=== PATIENT | female | born 1965 | race Two or more races ===

== ENCOUNTER 2023-06-25 12:34 | Outpatient (REF) | payer OTHER, SELFPAY ==
--- NOTE | ~2023-06-25 | XR_ITS ---
EXAMINATION: XR FOOT, RIGHT CLINICAL INFORMATION: Pain. COMPARISON: None available. TECHNIQUE: AP, lateral, and oblique views of the right foot. FINDINGS: There is bony demineralization. No fracture, dislocation or right ankle joint effusion is seen. Boehler's angle is normal. There are moderate posterior and plantar calcaneal spurs. There are degenerative changes of the dorsal midfoot. There is osteoarthritic change of the first and fourth metatarsophalangeal joints, and of the interphalangeal joint of the great toe. There is no focal soft tissue swelling, gas or foreign body. XR/XR foot RT min 3V IMPRESSION: 1. No fracture, dislocation or right ankle joint effusion is seen. 2. There are calcaneal spurs. 3. There are degenerative changes of the first and fourth metatarsophalangeal joints and the interphalangeal joint of the great toe.
== END 2023-06-25 12:35 | disposition home or self-care (01) ==
LOC: HO.HOSX 12:34
PROVIDERS: Visit Provider Physician Assistant
DX: S90.31XA Contusion of right foot, initial encounter (principal)
CPT/HCPCS: 73630; 99212

== ENCOUNTER 2023-06-25 13:13 | Outpatient (AMB) | payer MEDICAID, SELFPAY ==
--- NOTE | 2023-06-25 13:20 | MHC.OFFVIS ---
Intake Intake Visit Reasons: FC- ?3/4TH FOOT RT FX Intake Note: Syl is a 57 year old female who presents today for a evaluation of her 3rd and 4th phalanges, DOI 06/10/23. Patient reports she fell. She states that she is having pain is her toes and under her foot. Allergies Fish Containing Products Allergy (Severe, Unverified 04/25/20 18:21) ANAPHYLAXIS peanut [PEANUT] Allergy (Severe, Unverified 04/25/20 18:21) ANAPHYLAXIS strawberry [[place]] Allergy (Severe, Unverified 04/25/20 18:21) ANAPHLAXIS-ALL BERRIES tomato [TOMATO] Allergy (Severe, Unverified 04/25/20 18:21) ANAPHYLAXIS acetaminophen [Tylenol] Allergy (Unknown, Verified 10/09/14 00:00) aspirin [ASA] Allergy (Unknown, Unverified 04/25/20 18:) SHOCK Beef Containing Products Allergy (Unknown, Unverified 04/25/20 18:) MEATS-RASH/EDEMA codeine [CODEINE] Allergy (Unknown, Unverified 04/25/20 18:21) EDEMA ephedrine [Ephedrine] Allergy (Unknown, Unverified 04/25/20 18:21) LO BP - HEART ATTACK epinephrine Allergy (Unknown, Verified 10/09/14 00:00) latex [LATEX] Allergy (Unknown, Unverified 04/25/20 18:21) RASH,EDEMA meperidine [Demerol] Allergy (Unknown, Verified 10/09/14 00:00) oxycodone [OXYCODONE] Allergy (Unknown, Unverified 04/25/20 18:21) DIAPHORETIC penicillin V Allergy (Unknown, Verified 10/09/14 00:00) Penicillins [PENICILLINS] Allergy (Unknown, Unverified 04/25/20 18:21) CONVULSIONS Sulfa (Sulfonamide Antibiotics) [SULFA(SULFONAMIDE ANTIBIOTICS)] Allergy (Unknown, Unverified 04/25/20 18:) RASH CHOCOLATE Allergy (Severe, Uncoded 04/25/20 18:21) ANAPHYLAXIS Latex Gloves Allergy (Unknown, Uncoded 10/09/14 00:00) OXYCODONE Allergy (Unknown, Uncoded 10/09/14 00:00) PHOBIA ABOUT SKIN PJ Allergy (Unknown, Uncoded 10/09/14 00:00) Some types of tape Allergy (Unknown, Uncoded 10/09/14 00:00) From DEMEROL Adverse Reaction (Unknown, Uncoded 04/25/20 18:21) CONFUSION HPI FC- ? FOOT RT FX HPI Details 57-year-old female who presents in the office today, as a new patient, for an evaluation right foot pain. The patient reports she fell. She reports pain in the toes and under her foot. Patient has a history of prior ankle surgery but is unsure what procedure was performed. Review of Systems Const All systems reviewed & are unremarkable except as noted in HPI and below Physical Exam Const General: cooperative and no acute distress Orientation/consciousness: patient oriented x3 Resp Effort & Inspection: normal respiratory effort and able to speak in complete sentences Cardio Peripheral pulses: Peripheral pulses 2+ throughout Skin General skin exam: no rashes or lesions noted Neuro General: patient oriented x3 Extrem Other: Right foot: Normal to inspection. No ecchymosis, erythema, or edema. Tenderness to palpation over the 4th and 5th metatarsal heads extending down into the 4th and 5th digits. Able to demonstrate dorsiflex, plantarflex, pronation, and supination with no discomfort. No tenderness to palpation along the medial or lateral malleolus. NVI. Assessment & Plan Assessment & Plan (1) Contusion of right foot: Code(s): S90.31XA - Contusion of right foot, initial encounter Qualifiers: Encounter type: initial encounter Qualified Code(s): S90.31XA - Contusion of right foot, initial encounter Plan Ms. Arevalo is a 57-year-old female who presents in the office today, as a new patient, for an evaluation right foot pain. The patient reports she fell. She reports pain in the toes and under her foot. Patient has a history of prior ankle surgery but is unsure what procedure was performed. The patient is mostly wheelchair bound. She reports she does not ambulate except for transfers. It is unclear at to why. I offered her a short boot, off the shelf today, but she is allergic to the material. In this case, she may use a supportive walking shoe. Follow up will be in 6-8 weeks for a ROM check, or sooner if needed. X-rays of the right foot which were obtained while in the office today and were reviewed by me, Rebecca Shelton PA-C, revealed no acute fractures or dislocation but did show multiple degenerative changes of the foot and ankle. Orders: Orders XR foot RT min 3V Today M79.673 - Pain in unspecified foot Patient Instructions: Scribed for Rebecca Shelton PA-C by Cee Jacques medical reimbursement manager, on 06/25/2023 at 1:17 pm, EST. Coding Level of Care Code New Pt Level 3 (17993) Diagnoses Contusion of right foot, initial encounter S90.31XA Encounter type: initial encounter
== END 2023-06-25 13:47 | disposition home or self-care (01) ==
PROVIDERS: PCP Family Medicine; Visit Provider Physician Assistant
DX: S90.31XA Contusion of right foot, initial encounter (principal)
CPT/HCPCS: 99203

== ENCOUNTER 2023-09-23 08:32 | Outpatient (AMB) | payer MEDICAID, SELFPAY ==
[2023-09-23 08:42] VITALS: PULSE 96; O2SAT 95; BMI 35.1
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
== END 2023-09-23 10:12 | disposition home or self-care (01) ==
PROVIDERS: PCP Family Medicine; Visit Provider Nurse Practitioner Family
DX: G43.109 Migraine with aura, not intractable, without status migrainosus (principal); G93.2 Benign intracranial hypertension
CPT/HCPCS: 99204

== ENCOUNTER → 2023-09-23 08:32 | Outpatient (BNVA) | payer MEDICAID, SELFPAY | PROVIDERS: PCP Family Medicine; Visit Provider Nurse Practitioner Family | DX: G43.109 Migraine with aura, not intractable, without status migrainosus (principal); G93.2 Benign intracranial hypertension | CPT/HCPCS: 99212 ==

== ENCOUNTER 2024-06-08 09:56 | Outpatient (AMB) | payer OTHER, SELFPAY ==
[2024-06-08 10:05] VITALS: BP 120/82; BMI 35.0
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
== END 2024-06-08 11:10 | disposition home or self-care (01) ==
LOC: HO.HSMS 09:56
PROVIDERS: PCP Family Medicine; Visit Provider Nurse Practitioner Family
DX: G43.109 Migraine with aura, not intractable, without status migrainosus (principal); G93.2 Benign intracranial hypertension
CPT/HCPCS: 99214

== ENCOUNTER → 2024-06-08 09:56 | Outpatient (BNVA) | payer OTHER, SELFPAY | PROVIDERS: PCP Family Medicine; Visit Provider Nurse Practitioner Family | DX: G43.109 Migraine with aura, not intractable, without status migrainosus (principal); G93.2 Benign intracranial hypertension | CPT/HCPCS: 99212 ==

== ENCOUNTER 2024-12-18 10:23 | Outpatient (AMB) | payer OTHER, SELFPAY ==
[2024-12-18 10:37] VITALS: BP 124/82; PULSE 90; O2SAT 95
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
== END 2024-12-18 11:38 | disposition home or self-care (01) ==
LOC: HO.HSMS 10:23
PROVIDERS: PCP Family Medicine; Visit Provider Nurse Practitioner Family
DX: G43.109 Migraine with aura, not intractable, without status migrainosus (principal); M54.2 Cervicalgia; G93.2 Benign intracranial hypertension; R22.0 Localized swelling, mass and lump, head; R22.1 Localized swelling, mass and lump, neck
CPT/HCPCS: 99214

== ENCOUNTER → 2024-12-18 10:23 | Outpatient (BNVA) | payer OTHER, SELFPAY | PROVIDERS: PCP Family Medicine; Visit Provider Nurse Practitioner Family | DX: G43.109 Migraine with aura, not intractable, without status migrainosus (principal); M54.2 Cervicalgia; G93.2 Benign intracranial hypertension; R22.0 Localized swelling, mass and lump, head; R22.1 Localized swelling, mass and lump, neck; E78.5 Hyperlipidemia, unspecified; M06.9 Rheumatoid arthritis, unspecified; Z86.73 Personal history of transient ischemic attack (TIA), and cerebral infarction without residual deficits | CPT/HCPCS: 99212 ==

== ENCOUNTER 2025-07-03 11:01 | Outpatient (AMB) | payer OTHER, SELFPAY ==
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
--- OUTSIDE RECORDS SUMMARY | 2025-07-03 14:29 | XMS_ITS | Clinical Summary ---
Author Organization [facility] Address [address] [place] [address] Care Team Providers Care Mineral Mixer Name Role Phone Osiel Gibson MD Primary Care Provider [phone] Allergies Active Allergy Reactions Criticality Noted Date Comments Acetaminophen Hives,Rash High 01/13/2021 Other Reaction(s): only if coated version Chocolate 12/08/2024 Egg Rash High 12/03/2022 Ephedrine 01/13/2021 Other Reaction(s): hypotension and cardiac arrest, STOP HEART, DROPPED BP Fentanyl Unknown 02/05/2025 HYPOTENSIVE Ketorolac Anaphylaxis,Swelling High 01/13/2021 Kiwi 12/08/2024 Latex High 12/03/2022 Other Reaction(s): DYSPNEA, HEADACHES, VOMITING, headaches,vomiting ,difficulty breathing Meperidine High 01/13/2021 Other Reaction(s): COMBATIVE, AGGRESSIVE, combative,aggressive ,swelling Misoprostol High 12/03/2022 Other Reaction(s): DYSARTHRIA, CONFUSION, VOMITING, dysartria,confusion, vomiting Oxycodone Sweating High 12/03/2022 Other Reaction(s): CONFUSION, DIAPHORESIS Oxycodone-Acetaminophe n Swelling 12/08/2024 Other Reaction(s): difficulty to breath Penicillins Seizures High 01/13/2021 Potato 12/08/2024 Propofol 12/08/2024 Protein Hydrolyzate, Animal Unknown 02/05/2025 [place] 12/03/2022 Other Reaction(s): wheezes Sulfadiazine Anaphylaxis High 01/13/2021 Medications Ventolin HFA 90 mcg/actuation inhaler 09/05/2024 Active Symbicort 160-4.5 mcg/actuation inhaler 11/28/2024 Active cetirizine (ZyrTEC) 10 mg tablet 1 tablet (10 mg total). 06/14/2024 Active dicyclomine (BENTYL) 20 mg tablet 1 tablet (20 mg total). 10/31/2024 Active EPINEPHrine (EpiPen 2-Maikol) 0.3 mg/0.3 mL injection Inject 0.3 mL (0.3 mg total) into the thigh. 06/07/2023 Active ergocalciferol (VITAMIN D-2) 1,250 mcg (50,000 unit) capsule Take 1,250 mcg by mouth. Active folic acid (FOLVITE) 1 mg tablet 1 tablet (1 mg total). 10/31/2024 Active hydrOXYzine HCL (ATARAX) 10 mg tablet 1 tablet (10 mg total). 10/05/2024 Active ipratropium-albu teroL (DUONEB) 0.5-2.5 mg/3 mL nebulizer solution 3 mL. 08/30/2024 Active pantoprazole (PROTONIX) 40 mg EC tablet 1 tablet (40 mg total). 06/14/2024 Active PARoxetine (PAXIL) 20 mg tablet 1 tablet (20 mg total). 06/14/2024 Active Xeljanz 5 mg tablet 11/28/2024 Active baclofen (LIORESAL) 10 mg tablet Take 1.5 tablets (15 mg total) by mouth 4 (four) times a day. Active doxycycline (MONODOX) 100 mg capsuleIndicatio ns:History of right elbow replacement Take 1 capsule (100 mg total) by mouth 2 (two) times a day. Take 1 tablet 1 hour before dental procedure. Take the second tablet 6 hours after the first tablet. Take with at least 8 ounces of water, do not lie down for 30 minutes after either. 2 each 05/09/2025 Active Active Problems Problem Noted Date Diagnosed Date Mild emphysema (CMS/HCC V24, CMS/HCC V28) 2024 Status post finger joint fusion 04/03/2025 Surgery follow-up 04/03/2025 Right hand pain 03/13/2025 Pain from implanted hardware 02/13/2025 Abdominal pain 12/08/2024 Acid reflux 12/08/2024 Alpha thalassemia trait 12/08/2024 Belching 12/08/2024 Bloating 12/08/2024 Bronchiectasis ([facility] V24, [facility] V28) 2024 Cataracts, bilateral 12/08/2024 Class 1 obesity 12/08/2024 Dyslipidemia 12/08/2024 Fibromyositis 12/08/2024 IBS (irritable bowel syndrome) 12/08/2024 Major depression 12/08/2024 Nausea and vomiting 12/08/2024 Obstructive sleep apnea syndrome 12/08/2024 Osteopenia 12/08/2024 Pseudotumor cerebri 12/08/2024 Pulmonary embolism ([facility] V24, [facility] V28) Overview (12/08/2024): completed 1 yr of coumadin 06/2014 s/o knee surgery c DVT in 06/2013 Rheumatoid arthritis ([facility] V24, [facility] V28) 12/08/2024 Urinary incontinence 12/08/2024 [place]umb[place]-neck deformity of finger of right hand 03/09 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 12/02/2021 Rheumatoid arthritis involvi ng both hands with positive rheumatoid factor ([facility] V24, [facility] V28) 05/31/2021 S/P wrist joint replacement, right 01/27/2021 Rheumatoid arthritis involvi ng right wrist with positive rheumatoid factor ([facility] V24, [facility] V28) 01/14/2021 Cerebrovascular accident (CVA) ([facility] V24, [facility] V28) 09/26/2002 Encounters Date Type Department Care Team Description 06/21/2025 2:15 PM EST Consult Orthopedic Surgery - [address] [phone] Deondre Quiroga, DPM Arthritis of left ankle (Primary Dx); Rheumatoid arthritis involving left foot with negative rheumatoid factor ([facility] V24, [facility]/HCC V28); Difficulty walking; Instability of ankle, left 05/18/2025 12:58 AM EDT - 05/18/2025 12:59 AM EDT Emergency [facility] Emergency [address] [place] [phone] Contusion of right lower leg, initial encounter (Primary Dx) Discharge Disposition: Home or Self Care 05/09/2025 Telephone Orthopedic Surgery [facility] [address] [facility] [address] [place] [phone] Felicia Mooney MD 05/08/2025 2:15 PM EDT Office Visit [facility] [address] [phone] Felicia Mooney MD Rheumatoid arthritis involving both hands with positive rheumatoid factor (CMS/HCC V24, CMS/HCC V28) (Primary Dx); Status post finger joint fusion 04/17/2025 2:45 PM EDT Treatment [facility] [address] [phone] Ni Duval OT Right hand pain (Primary Dx) 04/05/2025 12:30 PM EDT Treatment [facility] [address] [phone] Ni Duval OT [place]-neck deformity of finger of right hand (Primary Dx); Status post finger joint fusion 04/03/2025 11:30 AM EDT Office Visit Orthopedic [facility] [address] [phone] Felicia Mooney MD Surgery follow-up (Primary Dx); Rheumatoid arthritis involving both hands with positive rheumatoid factor (CMS/HCC V24, CMS/HCC V28); Pain from implanted hardware, sequela; Status post finger joint fusion from Last 3 Months Surgical History Surgery Date Site/Laterality Comments WRIST SURGERY 01/16/2021 Right PROCEDURE: HISTORICAL WRIST SURGERY; COMMENT: Right total wrist arthroplasty with Dr. Mooney APPENDECTOMY PROCEDURE: VT APPENDECTOMY TUBAL LIGATION PROCEDURE: HISTORICAL TUBAL LIGATION TOTAL KNEE ARTHROPLASTY Bilateral PROCEDURE: VT ARTHRP KNE CONDYLE&PLATU MEDIAL&LAT COMPARTMENTS ELBOW SURGERY HAND SURGERY 02/21/2025 Right thumb casulodesis, long finger PIP arthrodesis, small finger hardware removal Medical History Medical History Date Comments Rheumatoid arthritis ([facility] V24, [facility] V28) DX:Rheumatoid arthritis ([facility] ) Tracheobronchomalacia DX:Tracheo bronchomalacia Pseudotumor cerebri DX:Pseudotum or cerebri; COMMENT: Per Dr. Mooney's notes Obstructive sleep apnea DX:Obstr uctive sleep apnea; COMMENT: Per Dr. 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 [place], old x3 perpatient CVA (cerebrovascular acciden t) ([facility] V24, [facility] V28) x3 per patient, per patient a type of stent placed Social History Tobacco Use Types Packs/Day Years Used Date Smoking Tobacco: Former Cigarettes 0.5 14.9 2 011 - 1980 Smokeless Tobacco: Never Tobacco Cessation:Counseling Given: Not Answered Alcohol Use Standard Drinks/Week Comments Never 0 (1 standard drink = 0.6 oz pur e alcohol) Interpersonal Safety Answer Date Record ed Physical Abuse Unrecognized value 02/21/2025 Verbal Abuse Unrecognized value 02/21/2025 Comments No Sex and Gender Information Value Date Recorded Sex Assigned at Female 03/15/2025 10:01 AM EDT Legal Sex Female 11:13 PM EST Gender Identity Female 03/15/2025 10:01 AM EDT Sexual Orientation Choose not to disclose 2024 10:01 AM EDT Obstetrics History Last Filed Vital Signs Vital Sign Reading Time Taken Comments Blood Pressure 131/79 05/17/2025 11:52 PM EDT Pulse 88 05/17/2025 11:52 PM EDT Temperature 36.7 C (98.1 F) 05/17/2025 11:52 PM EDT Respiratory Rate 18 05/17/2025 11:52 PM EDT Oxygen Saturation 96% 05/17/2025 11:52 PM EDT Inhaled Oxygen Concentration - - Weight 104 kg (230 lb) 05/08/2025 2:19 PM EDT Height 172.7 cm (5' 8 ) 05/08/2025 2:19 PM EDT Body Mass Index 34.97 05/08/2025 2:19 PM EDT Plan of Treatment Upcoming Encounters Date Type Department Care Team (Late st Contact Info) Description 08/30/2025 2:15 PM EST Office Visit Orthopedic Surgery - [place] [address] [phone] Deondre Quiroga, DPCristina [address] [phone] Health Maintenance Due Date Last Done Comments Breast Cancer Screening 1965 Colorectal Cancer Screening: Colonoscopy 1965 Pneumococcal Vaccine: 50+ Years (1 of 2 - PCV) 1984 Cervical Cancer Screening: P ap Smear 1986 RSV Immunization Adult Patients (1 - Risk 50-74 years 1-dose series) 2015 Zoster Vaccines (1 of 2) 2015 Cholesterol Screening (Lipid Panel) 07/12/2022 HIV Screening 07/12/2022 Hepatitis C Screening 07/12/2022 Social Influencers of Health Screening 07/12/2022 Depression Screening 08/09/2024 COVID-19 Vaccine (1 - 2024-2 6 season) 2025 Influenza Vaccine (#1) 2025 07/18/2012 DTaP,Tdap,and Td Vaccines (3 - Td or Tdap) 04/20/2034 04/20/2024, 11/21/2010 HIB Vaccines Aged Out No longer eligi ble based on patient's age to complete this topic HPV Vaccines Aged Out No longer eligi ble based on patient's age to complete this topic Hepatitis A Vaccines Aged Out No long er eligible based on patient's age to complete this topic Hepatitis B Vaccines Aged Out No long er eligible based on patient's age to complete this topic IPV Vaccines Aged Out No longer eligi ble based on patient's age to complete this topic MMR Vaccines Aged Out No longer eligi ble based on patient's age to complete this topic Meningococcal ACWY Vaccine Aged Out N o longer eligible based on patient's age to complete this topic Meningococcal B Vaccine Aged Out No l onger eligible based on patient's age to complete this topic RSV Immunization Patients Under 20 months Aged Out No longer eligible b ased on patient's age to complete this topic Varicella Vaccines Aged Out No longer eligible based on patient's age to complete this topic Goals Goal Patient Goal Type Associated Problems Recent Progress Patient-Stated? Author <enter goal here> General On track(04/17/20 5:14 PM EDT) Yes Ni Duval, OT Note: OT PATIENT GOAL BE ABLE TO WRITE WITH THIS HAND Medical Devices Implanted Type Area Net Manager Device Identifier Shelf Expiration Date Model / Serial / Lot [place] Sut Quick Mini 3-0 Orth - Sn/A - [id number] Implanted:Qty: 1 on 02/21/2025 by Felicia Mooney MD at [facility] Arthroscopy Implants Sports Med Right: Thumb JNJ DEPUY MITEK 09/08/2027 [id number] / N/A / [id number] Joints Knee Joints Knee Bilatera l: Knee Procedures Procedure Name Priority Date/Time Associated Diagnosis Comments XR TIBIA FIBULA 2 VIEWS RIGHT STAT 05/17/2025 11:10 PM EDT XR HAND 3+ VIEWS RIGHT Routine 04/03/2025 12:23 PM EDT Post-operative state from Last 3 Months Results * XR Tibia Fibula 2 Views Right (05/17/2025 11:10 PM EDT) Anatomical Region Laterality Modality Lower Extremities, Lower Leg Right Rad iographic Imaging 05/18/2025 9:15 AM EDT Impressions 05/18/2025 9:15 AM EDT FINDINGS/IMPRESSION: No acute fracture or dislocation. Right knee arthroplasty in anatomic alignment. Mild degenerative changes at the tibiotalar joint. Achilles enthesopathy and plantar calcaneal spur. Degenerative change seen throughout the mid foot as well as at the calcaneocuboid and talonavicular joints. No focal soft tissue swelling. Corticated densities around the distal aspect of the fibula indicative of old injury. -------- FINAL REPORT -------- Dictated By: JAYLEEN TA Dictated Date: 05/18/2025 09:15 ET Assigned Physician: JAYLEEN TA Reviewed and Electronically Signed By: JAYLEEN TA Signed Date: 05/18/2025 09:15 ET Workstation ID: [id number] Transcribed By: Self Edit Transcribed Date: 05/18/2025 09:15 ET Narrative 05/18/2025 9:15 AM EDT XR TIBIA FIBULA 2 VIEWS RIGHT INDICATION: Pain TECHNIQUE: XR TIBIA FIBULA 2 VIEWS RIGHT COMPARISON: No priors available. Procedure Note Jayleen Ta MD - 05/18/2025 XR TIBIA FIBULA 2 VIEWS RIGHT INDICATION: Pain TECHNIQUE: XR TIBIA FIBULA 2 VIEWS RIGHT COMPARISON: No priors available. IMPRESSION: FINDINGS/IMPRESSION: No acute fracture or dislocation. Right kneearthroplasty in anatomic alignment. Mild degenerative changes at thetibiotalar joint. Achilles enthesopathy and plantar calcaneal spur.Degenerative change seen throughout the mid foot as well as at thecalcaneocuboid and talonavicular joints. No focal soft tissue swelling.Corticated densities around the distal aspect of the fibula indicative ofold injury. -------- FINAL REPORT -------- Dictated By: JAYLEEN TA Dictated Date: 05/18/2025 09:15 ET Assigned Physician: JAYLEEN TA Reviewed and Electronically Signed By: JAYLEEN TA Signed Date: 05/18/2025 09:15 ET Workstation ID: [id number] Transcribed By: Self Edit Transcribed Date: 05/18/2025 09:15 ET us Imer VILLA IMG XR PROCEDURES Final Res ult * XR Hand 3+ Views Right (04/03/2025 12:23 PM EDT) Anatomical Region Laterality Modality Upper Extremities, Hand Right Computed Radiography Narrative 04/03/2025 10:10 PM EDT AP, lateral, oblique of the right hand was obtained on 04/03/2025. There are multiple other images from earlier to compare to. There has been interval removal of 1 pin and wire from the small finger PIP fusion site. 1 pin remains. There are now surgical wire and pins at the PIP joint of the long finger and there is a longitudinal pin down the distal and proximal phalanx of the thumb. The long finger appears reasonably aligned. On the lateral there is still faintly aligned at the fusion interval. There is no resorption no loosening of hardware Impression: Fusion of PIP joint long finger, removal of some hardware from the small finger, pinning of the thumb IP joint Felicia Mooney MD IMG XR PROCEDURES Final Resul t from Last 3 Months Insurance [address] [place] [address] MEDICAID ADVANTAGE Advance Directives Documents on File Type Date Recorded Patient Labor Trainer Expl anation Health Care Decision (hx) 01/21/2021 AD CREWS DIRECTIVE Health Care Decision (hx) 01/21/2021 AD CREWS DIRECTIVE Health Care Decision (hx) 01/21/2021 AD CREWS DIRECTIVE Health Care Decision (hx) 01/21/2021 AD CREWS DIRECTIVE Health Care Decision (hx) 01/21/2021 AD CREWS DIRECTIVE Health Care Decision (hx) 01/21/2021 AD CREWS DIRECTIVE Health Care Decision (hx) 01/21/2021 AD CREWS DIRECTIVE Health Care Decision (hx) 01/21/2021 AD CREWS DIRECTIVE Health Care Decision (hx) 01/21/2021 AD CREWS DIRECTIVE Health Care Decision (hx) 01/21/2021 AD CREWS DIRECTIVE Health Care Decision (hx) 01/16/2021 AD CRWES DIRECTIVE * Full Code - Default (Latest Code Status on File) Date Activated Date Inactivated Comments 02/21/2025 9:13 AM 02/21/2025 5:21 PM This is orde r is used when code status has not been discussed with the patient, or code status is otherwise unknown/unconfirmed To update the patient's code status, place a code status order. Do not modify or discontinue any currently active code status orders. Care Teams Mineral Mixer Relationship Specialty Start Date End Date Osiel Gibson MD [address] [place] [phone] PCP - General 12/27/20
== END 2025-07-03 12:55 | disposition home or self-care (01) ==
LOC: HO.HSMS 11:01
PROVIDERS: PCP Family Medicine; Visit Provider Nurse Practitioner Family
DX: G43.109 Migraine with aura, not intractable, without status migrainosus (principal); M54.2 Cervicalgia; G93.2 Benign intracranial hypertension; R22.0 Localized swelling, mass and lump, head; R22.1 Localized swelling, mass and lump, neck
CPT/HCPCS: 99214